=== PATIENT | female | born 2000 | race Caucasian/White ===

== ENCOUNTER 2018-07-01 20:37 | Emergency (ER) | payer OTHER ==
--- NOTE | 2018-07-01 20:47 | EDPHY ---
H & P Stated Complaint: R FLANK PAIN, ABD PAIN FOR PAST 2 DAYS DENIES UTI SX Time Seen by Provider: 07/01/18 20:46 HPI/ROS: HPI CHIEF COMPLAINT: Right-sided back pain, right-sided abdominal pain. HISTORY OF PRESENT ILLNESS: This is a very pleasant 18-year-old female she is otherwise healthy without any significant medical history presents emergency room with right flank, right-sided abdominal pain. She states she has had this for 2-3 days. Urinary frequency but no urgency or dysuria. Denies any vaginal discharge. No vomiting, denies diarrhea, denies fever, denies chest pain shortness of breath, pain is located right flank and sometimes goes to her right abdomen. Past Medical History: Denies significant medical history Past Surgical History: Denies significant surgical history Social History: Denies drugs alcohol tobacco. Family History: Noncontributory ROS REVIEW OF SYSTEMS: 10 Systems were reviewed and negative with the exception of the elements mentioned in the history of present illness. Exam Constitutional nontoxic. No acute distress triage nursing summary reviewed, vital signs reviewed, awake/alert. Eyes normal conjunctivae and sclera, EOMI, PERRLA. HENT normal inspection, atraumatic, moist mucus membranes, no epistaxis, neck supple/ no meningismus, no raccoon eyes. Respiratory clear to auscultation bilaterally, normal breath sounds, no respiratory distress, no wheezing. Cardiovascular rate normal, regular rhythm, no murmur, no edema, distal pulses normal. Gastrointestinal soft, non-tender, no rebound, no guarding, normal bowel sounds, no distension, no pulsatile mass. Genitourinary mild right CVA tenderness. Musculoskeletal no midline vertebral tenderness, full range of motion, no calf swelling, no tenderness of extremities, no meningismus, good pulses, neurovascularly intact. Skin pink, warm, & dry, no rash, skin atraumatic. Neurologic awake, alert and oriented x 3, AAOx3, moves all 4 extremities equally, motor intact, sensory intact, CN II-XII intact, normal cerebellar, normal vision, normal speech. Psychiatric normal mood/affect. Heme/Lymph/Immune no lymphadenopathy. Differential diagnosis includes but is not limited to and in no particular order : Bowel obstruction, appendicitis, gallbladder disease, diverticulitis, colitis , enteritis, perforated viscus, gastritis, GERD, esophagitis, urinary tract infection, pyelonephritis, kidney stones Medical Decision Making: Plan for this patient with right flank pain right- sided abdominal pain will proceed with IV establishment blood draw, check basic labs, UA, test and re-evaluate. Re-evaluation: CT scan abdomen pelvis with IV contrast shows no evidence of acute appendicitis. Constipation present. Also noted inflammation of the bladder and ureter consistent with most likely UTI. No significant perinephric stranding. Patient's urinalysis reviewed shows nitrite positive. Urine cultures been sent. 1 g Rocephin has been ordered. Patient's labs and CT reviewed. Patient has a UTI based on urinalysis. Low back pain. Possibly early pyelonephritis. Here in emergency room the patient appears well nontoxic no acute distress is afebrile. White count is noted. Urine culture sent. IV Rocephin has been given. Recommend patient drinking lots of fluids stay well-hydrated. Keflex at home peridium at home. Distally return precautions discussed return if worsening abdominal pain, flank pain, fever, vomiting. Understands. - Personal History LMP (Females 10-55): 22-28 Days Ago Current Tetanus/Diphtheria Vaccine: Yes Current Tetanus Diphtheria and Acellular Pertussis (TDAP): Yes - Medical/Surgical History Hx Asthma: No Hx Chronic Respiratory Disease: No Hx Diabetes: No Hx Cardiac Disease: No Hx Renal Disease: No Hx Cirrhosis: No Hx Alcoholism: No Hx HIV/AIDS: No Hx Splenectomy or Spleen Trauma: No Other PMH: DENIES - Social History Smoking Status: Never smoked Constitutional: Initial Vital Signs Temperature (C) 37.1 C 07/01/18 20:40 Heart Rate 80 07/01/18 20:40 Respiratory Rate 18 07/01/18 20:40 Blood Pressure 138/54 H 07/01/18 20:40 O2 Sat (%) 94 07/01/18 20:40 O2 Delivery Mode Room Air Allergies/Adverse Reactions: No Known Allergies Allergy (Unverified 07/01/18 20:41) Home Medications: Medication Instructions Recorded Cephalexin [Keflex] 500 mg PO Q6H #28 cap 07/01/18 Phenazopyridine HCl [Pyridium] 200 mg PO TID #15 tab 07/01/18 Z-Pac 07/01/18 Medical Decision Making - Diagnostics Imaging Results: Imaging Impressions Abdomen CT 07/01/18 21:24 Impression: 1. Suspect right urinary tract infection with right periureteral inflammatory changes but no definite pyelonephritis. 2. No CT evidence of appendicitis, abscess or bowel obstruction. 3. Mild constipation. Findings and recommendations discussed with Emergency Department physician, Hiram Ram MD at 21:50 hour, 07/01/2018. Final report concurs with initial preliminary interpretation. - Data Points Laboratory Results: Laboratory Results 07/01/18 20:50 07/01/18 20:50 07/01/18 07/01/18 07/01/18 21:25 20:50 20:50 WBC RBC Hgb Hct MCV MCH MCHC RDW Plt Count MPV Neut % (Auto) Lymph % (Auto) [place] % (Auto) Eos % (Auto) Baso % (Auto) Nucleat RBC Rel Count Absolute Neuts (auto) Absolute Lymphs (auto) Absolute Monos (auto) Absolute Eos (auto) Absolute Basos (auto) Absolute Nucleated RBC Immature Gran % Immature Gran # Sodium 137 mEq/L mEq/L (135-145) Potassium 3.7 mEq/L mEq/L (3.3-5.0) Chloride 101 mEq/L mEq/L (97-110) Carbon Dioxide 26 mEq/l mEq/l (22-31) Anion Gap 10 mEq/L mEq/L (6-14) BUN 10 mg/dL mg/dL (7-23) Creatinine 0.6 mg/dL mg/dL (0.6-1.0) Estimated GFR > 60 Glucose 85 mg/dL mg/dL (70-100) Calcium 9.9 mg/dL mg/dL (8.5-10.4) Total Bilirubin 0.8 mg/dL mg/dL (0.1-1.4) Conjugated Bilirubin 0.2 mg/dL mg/dL (0.0-0.5) Unconjugated Bilirubin 0.6 mg/dL mg/dL (0.0-1.1) AST 25 IU/L IU/L (14-46) ALT 26 IU/L IU/L (9-52) Alkaline Phosphatase 69 IU/L IU/L (38-126) Total Protein 7.7 g/dL g/dL (6.3-8.2) Albumin 4.5 g/dL g/dL (3.5-5.0) Lipase 70 IU/L IU/L (23-300) Beta HCG, Qual NEGATIVE Urine Color YELLOW Urine Appearance HAZY Urine pH 6.0 (5.0-7.5) Ur Specific [place] 1.013 (1.002-1.030) Urine Protein 2+ H (NEGATIVE) Urine Ketones 1+ H (NEGATIVE) Urine Blood 2+ H (NEGATIVE) Urine Nitrate POSITIVE H (NEGATIVE) Urine Bilirubin NEGATIVE (NEGATIVE) Urine Urobilinogen NEGATIVE EU EU (0.2-1.0) Ur Leukocyte Esterase 2+ H (NEGATIVE) Urine RBC 50-182 /hpf H /hpf (0-3) Urine WBC 50-182 /hpf H /hpf (0-3) Ur Epithelial Cells TRACE /lpf /lpf (NONE-1+) Urine Bacteria 4+ /hpf H /hpf (NONE SEEN) Urine Mucus 1+ /lpf /lpf (NONE-1+) Urine Glucose NEGATIVE (NEGATIVE) 07/01/18 20:50 WBC 14.69 10^3/uL H 10^3/uL (3.80-9.50) RBC 4.90 10^6/uL 10^6/uL (4.18-5.33) Hgb 14.2 g/dL g/dL (12.6-16.3) Hct 42.5 % % (38.0-47.0) MCV 86.7 fL fL (81.5-99.8) MCH 29.0 pg pg (27.9-34.1) MCHC 33.4 g/dL g/dL (32.4-36.7) RDW 11.9 % % (11.5-15.2) Plt Count 306 10^3/uL 10^3/uL (150-400) MPV 10.5 fL fL (8.7-11.7) Neut % (Auto) 76.0 % H % (39.3-74.2) Lymph % (Auto) 15.3 % % (15.0-45.0) [place] % (Auto) 6.5 % % (4.5-13.0) Eos % (Auto) 1.2 % % (0.6-7.6) Baso % (Auto) 0.7 % % (0.3-1.7) Nucleat RBC Rel Count 0.0 % % (0.0-0.2) Absolute Neuts (auto) 11.15 10^3/uL H 10^3/uL (1.70-6.50) Absolute Lymphs (auto) 2.25 10^3/uL 10^3/uL (1.00-3.00) Absolute Monos (auto) 0.96 10^3/uL H 10^3/uL (0.30-0.80) Absolute Eos (auto) 0.18 10^3/uL 10^3/uL (0.03-0.40) Absolute Basos (auto) 0.11 10^3/uL H 10^3/uL (0.02-0.10) Absolute Nucleated RBC 0.00 10^3/uL 10^3/uL (0-0.01) Immature Gran % 0.3 % % (0.0-1.1) Immature Gran # 0.04 10^3/uL 10^3/uL (0.00-0.10) Sodium Potassium Chloride Carbon Dioxide Anion Gap BUN Creatinine Estimated GFR Glucose Calcium Total Bilirubin Conjugated Bilirubin Unconjugated Bilirubin AST ALT Alkaline Phosphatase Total Protein Albumin Lipase Beta HCG, Qual Urine Color Urine Appearance Urine pH Ur Specific [place] Urine Protein Urine Ketones Urine Blood Urine Nitrate Urine Bilirubin Urine Urobilinogen Ur Leukocyte Esterase Urine RBC Urine WBC Ur Epithelial Cells Urine Bacteria Urine Mucus Urine Glucose Medications Given: Ceftriaxone Sodium/Dextrose (Rocephin 1 Gm (Premix)) 50 mls @ 100 mls/hr IV EDNOW ONE PRN Reason: Protocol Stop: 07/01/18 22:19 Last Admin: 07/01/18 22:00 Dose: 50 mls Discontinued Medications Cephalexin (Keflex 500 Mg Prepack#4) 1 btl TAKEHOME EDNOW ONE PRN Reason: Protocol Stop: 07/01/18 21:54 Last Admin: 07/01/18 22:01 Dose: 1 btl Cephalexin HCl (Keflex) 500 mg PO EDNOW ONE PRN Reason: Protocol Stop: 07/01/18 21:54 Last Admin: 07/01/18 22:08 Dose: Not Given Sodium Chloride (Ns) 1,000 mls @ 0 mls/hr IV EDNOW ONE; Wide Open PRN Reason: Protocol Stop: 07/01/18 20:53 Last Admin: 07/01/18 20:56 Dose: 1,000 mls Sodium Chloride (Ns) 1,000 mls @ 0 mls/hr IV ONCE ONE PRN Reason: Wide Open Stop: 07/01/18 21:51 Last Admin: 07/01/18 22:00 Dose: 1,000 mls Phenazopyridine HCl (Pyridium) 200 mg PO EDNOW ONE Stop: 07/01/18 21:54 Last Admin: 07/01/18 22:01 Dose: 200 mg Departure - Departure Disposition: Home, Routine, Self-Care Clinical Impression: Urinary tract infection Condition: Good Instructions: Urinary Tract Infection in Women (ED) Additional Instructions: 1. Drink lots of fluids stay well-hydrated 2. Antibiotics as prescribed 3. Return emergency room if there is worsening symptoms includes fever, back pain, vomiting or not doing well 4. You have a urinary tract infection. Referrals: AARON,DOCTOR [Other] - As per Instructions Prescriptions: Cephalexin [Keflex] 500 mg PO Q6H #28 cap Phenazopyridine HCl [Pyridium] 200 mg PO TID #15 tab
[2018-07-01] MEDS ORDERED: NS 1,000 ML IV ONE ×2 (20:52→21:50)
[2018-07-01 21:00] LABS: PLATELET COUNT 306 10^3/uL (150-400)
[2018-07-01] MEDS ORDERED: IOPAMIDOL (ISOVUE-300) 100 ML BTL ONE (21:28)
[2018-07-01] MEDS ORDERED: CEPHALEXIN 500MG PREPACK#4 BTL TAKEHOME ONE (21:53)
[2018-07-01] MEDS ORDERED: CEPHALEXIN 500 MG CAP PO ONE (21:53)
[2018-07-01] MEDS ORDERED: PHENAZOPYRIDINE HCL 200 MG TAB PO ONE (21:53)
[2018-07-01 22:31] VITALS: BP 117/73
== END 2018-07-01 22:30 | disposition home or self-care (01) ==
DX: N39.0 Urinary tract infection, site not specified (principal); E86.9 Volume depletion, unspecified
CPT/HCPCS: 96365; J0696; Q9967